=== PATIENT | female | born 1970 | race Caucasian/White ===

== ENCOUNTER 2022-06-19 22:38 | Emergency (ER) | payer OTHER ==
[2022-06-19 23:12] LABS: BASOPHIL 0.3 % (0-2); EOSINOPHIL 0.4 % (0-5); HGB 14.5 g/dl (12.5-16.0); LYMPHOCYTE 18.1 % (15-48); MCH 29.1 pg (25.0-31.0); MCHC 33.7 g/dL (32.0-36.0); MCV 86.3 fL (78.0-100.0); MONOCYTE 7.4 % (0-12); MPV 9.4 fL (6.0-9.5); NEUTROPHIL 73.4 % (41-80); NRBC 0; PLT 301 K/uL (150-400); RBC 4.98 M/uL (4.20-5.40); RDW 13.9 % (11.5-14.0); WBC 15.9 K/uL (4.0-10.5)
[2022-06-19 23:31] LABS: ALBUMIN 3.4 g/dL (3.4-5.0); ALKALINE PHOSHATASE 93 U/L (46-116); ALT 28 U/L (14-59); AST 17 U/L (15-37); BILIRUBIN - TOTAL 0.3 mg/dL (0.2-1.0); BUN 15 mg/dL (7-18); BUN/CREAT RATIO (CALC) 17.2 RATIO; CHLORIDE 103 mmol/L (98-107); CO2 (BICARBONATE) 24 mmol/L (21-32); CREATININE 0.87 mg/dL (0.51-0.95); GLOBULIN (CALCULATION) 3.7 g/dL; GLUCOSE 220 mg/dL (74-106); LIPASE >2250 U/L (73-393); POTASSIUM 3.5 mmol/L (3.5-5.1); TOTAL PROTEIN 7.1 g/dL (6.4-8.2)
[2022-06-20 01:00] LABS: BILIRUBIN NEGATIVE (NEGATIVE); BLOOD TRACE-INTACT Ery/uL (NEGATIVE); CLARITY HAZY (CLEAR); COLOR YELLOW (YELLOW); GLUCOSE (U) TRACE mg/dL (NORMAL); LEUKOCYTES NEGATIVE Leu/uL (NEGATIVE); NITRITE NEGATIVE (NEGATIVE); PROTEIN TRACE (LOW) mg/dL (NEGATIVE); UROBILINOGEN 0.2 mg/dL (0.2-1.0)
[2022-06-20 01:05] LABS: ECSTASY (MDMA) NEGATIVE (NEGATIVE); MARIJUANA (THC) NEGATIVE (NEGATIVE); METHADONE NEGATIVE (NEGATIVE)
[2022-06-20 01:06] LABS: AMPHETAMINES NEGATIVE (NEGATIVE); BARBITURATES NEGATIVE (NEGATIVE); OPIATES POSITIVE (NEGATIVE); OXYCODONE NEGATIVE (NEGATIVE)
[2022-06-20 01:10] LABS: BACTERIA 2+
[2022-06-20] MEDS ORDERED: PHENERGAN25 M1 PO (01:33)
[2022-06-20] MEDS ORDERED: PEPCID AC20 MG PO (01:33)
[2022-06-20] MEDS ORDERED: PROMETHEGA12.5 MG/SU PR (01:33)
[2022-06-20] MEDS ORDERED: PRILOSEC20 MG PO (01:33)
[2022-06-20] MEDS ORDERED: ONDANSETRON ODT4 MG PO (01:33)
[2022-06-20] MEDS ORDERED: NORCO 5-325 TA1 EACH PO (01:34)
== END 2022-06-20 02:51 | disposition home or self-care (01) ==
LOC: FER 22:38
PROVIDERS: Emergency Medicine
DX: K85.90 Acute pancreatitis without necrosis or infection, unspecified (principal); Z28.310 Unvaccinated for COVID-19
CPT/HCPCS: 36415; 80053; 80305; 81001; 83690; 84484; 85025; G0480; J1170; J1885; J2270; J2405; J7030; Q9967